=== PATIENT | male | born 2000 | race Caucasian/White ===

== ENCOUNTER 2019-09-09 12:50 | Observation (INO) ==
[2019-09-09] MEDS ORDERED: SODIUM CHLORIDE 0.9% 1000ML 2,000 ML IV SCH (13:30)
[2019-09-09] MEDS ORDERED: KETOROLAC TROMETHAMINE 15 MG/ML VIAL IV ONE (13:45)
[2019-09-09] MEDS ORDERED: ONDANSETRON INJ 2 MG/ML 2 ML VIAL IV STA (13:45)
[2019-09-09 13:56] LABS: Hematocrit (blood only) 39.3 % (42-52); Hemoglobin 13.7 g/dL (14.0-18.0); Mean Corpuscular Hemoglobin 29.1 pg (25-34); Mean Corpuscular Hgb Conc 34.9 g/dL (32-36); Mean Corpuscular Volume 83.6 fL (80-100); Mean Platelet Volume 9.8 fL (7.4-10.4); Platelet Count 185 K/uL (130-400); RDW Coefficient of Variation 12.4 % (11.5-14.5); RDW Standard Deviation 37.9 fL (36.4-46.3); White Blood Count 3.17 K/uL (4.8-10.8)
[2019-09-09 14:10] LABS: Alanine Aminotransferase 40 U/L (12-78); Albumin Level 3.6 gm/dl (3.4-5.0); Aspartate Aminotransferase 13 U/L (15-37); Blood Urea Nitrogen 10 mg/dl (7-18); Calcium 9.8 mg/dl (8.5-10.1); Carbon Dioxide 26 mmol/L (21-32); Chloride 99 mmol/L (98-107); Creatinine Clr Calc Pharmacy 105.8 ml/min; Est GFR (African American) 105.6; Est GFR (Non-African American) 91.1; Glucose 128 mg/dl (70-99); Potassium 3.5 mmol/L (3.5-5.1); Sodium 133 mmol/L (136-145)
[2019-09-09] MEDS ORDERED: ACETAMINOPHEN 500 MG TAB PO STA (14:10)
[2019-09-09 14:14] LABS: Albumin Globulin Ratio 0.9 (0.9-2); Alkaline Phosphatase 74 U/L (45-117); Bilirubin,Total 1.2 mg/dl (0.2-1); Globulin 4.2 gm/dl (2.5-4.0); Total Protein 7.8 gm/dl (6.4-8.2); Troponin I < 0.015 ng/ml (0-0.045)
[2019-09-09 14:23] LABS: Basophils # (auto) 0.01 K/uL (0-0.2); Basophils % (auto) 0.3 %; Dohle Bodies 2+; Lymphocytes # (auto) 0.82 K/uL (1.2-3.4); Lymphocytes % (auto) 25.9 %; Monocytes # (auto) 2.05 K/uL (0.11-0.59); Monocytes % (auto) 64.7 %; Neutrophils # (auto) 0.29 K/uL (1.4-6.5); Neutrophils % (auto) 9.1 %; Toxic Vacuolation 1+
--- NOTE | 2019-09-09 14:41 | XRay Report ---
XR chest 1V portable CLINICAL HISTORY: Fever and cough. COMPARISON STUDY: No previous studies for comparison. FINDINGS: Patient is mildly rotated. Lung volumes are normal. There is no pneumothorax or pleural eff usion. Possible left perihilar opacity is probably artifactual. Cardiac size is normal. Mediastinal c ontours are unremarkable. There is no evidence for pulmonary edema. IMPRESSION: Possible mild left perihilar opacity. Artifact is favored however a small focus of pneum onia could appear similar. Radiographic follow-up is recommended. Electronically signed by: Grady Zamorano M.D. 09/09/2019 2:39 PM
[2019-09-09] MEDS ORDERED: DOXYCYCLINE HYCLATE 100 MG in DEXTROSE 5% 100 ML IV STA (15:15)
[2019-09-09] MEDS ORDERED: cefTRIAXone SODIUM 1,000 MG/50 ML BAG IV STA (15:15)
[2019-09-09 15:49] LABS: Influenza A virus by PCR Neg for Influ A (Neg); Influenza B virus by PCR Neg for Influ B (Neg)
[2019-09-09 15:50] LABS: Appearance Urine Clear (Clear); Bilirubin Urine Negative (Negative); Blood Urine Trace (Negative); Color Urine Yellow; Glucose Urine UA Negative (Negative); Ketones Urine Negative (Negative); Leukocyte Esterase Urine Negative (Negative); Nitrite Urine Negative (Negative); Protein Urine 2+ (Negative); Specific Gravity Urine 1.025 (1.000-1.030); Urobilinogen Urine Negative (Negative)
[2019-09-09 15:56] LABS: Bacteria Urine Negative (Negative); Epithelial Cell Urine 20-30 /lpf (0-5); RBC Urine 0-4 /hpf (0-4); WBC Urine 0-5 /hpf (0-5)
[2019-09-09] MEDS: SODIUM CHLORIDE 0.9% 1000ML 1,000 ML IV SCH (16:30)
--- NOTE | 2019-09-09 17:47 | Emergency Department Note ---
Entered by Jose Alberto Sagastume acting as a scribe for Vaughn Gonzalez MD ED Provider Note CHIEF COMPLAINT: Fever HISTORY OF PRESENT ILLNESS: The patient is a 19 year old male who presents to the Emergency Room with complaints of a constant fever that started about 3 days ago. The patient reports that he was diagnosed with mono last month at [facility] and has been improving up until 3 days ago. With the fever, the patient has had a sore throat that is worse with swallowing. He adds that when swallows something he experiences a burning pain down his throat into his chest. The patient also endorses some intermittent abdominal pain with associated nausea and vomiting. The patient reports that she called a doctor at [facility] yesterday and had prednisone called in for him. The patient has only taken one dose of the steroids. The patient was seen at [facility] today and tested negative for the flu and strep. Pt denies LOC, diaphoresis, visual changes, back pain, melena, hematochezia, urinary symptoms, numbness, weakness, lymphadenopathy, rash, or other complaints. REVIEW OF SYSTEMS: See HPI for pertinent positives and negatives. A total of ten systems were reviewed and were otherwise negative. PMHx/PSHx: Pneumonia SOCIAL HISTORY: Patient lives at home. PHYSICAL EXAM: GENERAL: Awake, alert, uncomfortable-appearing, in no distress HENT: Normocephalic, atraumatic. Oropharynx unremarkable. Uvula is midline. EYES: Normal conjunctiva. Sclera non-icteric. NECK: Moderate anterior adenopathy. Supple. No nuchal rigidity. FROM. No masses. RESPIRATORY: Clear to auscultation. No wheezes. No rales. Normal respiratory effort. CARDIAC: Tachycardic rate. Normal rhythm. No murmurs. No rubs. Extremities warm and well perfused. Pulses equal. No JVD. GI: Soft, non-distended. No tenderness to palpation. No rebound or guarding. No masses. RECTAL: Deferred. MUSCULOSKELETAL: Atraumatic. Chest examination reveals no tenderness. The back is symmetrical on inspection without obvious abnormality. There is no CVA tenderness to palpation. No joint edema. LOWER EXTREMITIES: Calves are equal size bilaterally and non-tender. No edema. No discoloration. NEURO: Normal sensorium. No sensory or motor deficits noted. SKIN: No rash or jaundice noted. EMERGENCY DEPARTMENT COURSE: 1340: Past medical records reviewed. The patient was evaluated in room B09, and a complete history and physical examination were performed. 1433: I checked on the patient and his vitals are improving. 1520: I reevaluated the patient and updated him on results. We also discussed the treatment plan and he is agreeable. 1524: I spoke to Dr. Garcia - [facility] Hospitalist about the patient's case. He agreed to accept the patient for further evaluation. MEDICAL DECISION MAKING: B9 Triage Nursing notes reviewed and agree them. The patient's history was concerning for fever. Differential diagnosis: Etiologies such as otitis, pharyngitis, pneumonia, influenza, meningitis, urinary tract infection, sepsis, bacteremia, viral syndrome, as well as others were entertained. Physical examination: As above. The patient was tachycardic. No meningeal findings. He had moderate adenopathy without any uvular deviation. No stridor or airway compromise. ER treatment provided: Normal saline hydration with 2 L IV Toradol IV Zofran Oral Tylenol On reassessment the patient did feel better. Vital signs improving. IV Rocephin IV doxycycline Neutropenic precautions on reassessment the patient felt better. Diagnostics interpreted by me: ECG: Sinus tachycardia noted. The labs revealed the patient had a leukopenia as well as neutropenia on his CBC. No thrombocytopenia. Chemistry panel was unremarkable. Flu PCR testing was negative. Troponin negative. Imaging studies: Chest x-ray was concerning for developing infiltrate on the left side. The patient does have a significant cough and fever. This is was worrisome for pneumonia I discussed further management in the hospital with the patient. He was in agreement. Consultation: A consultation was placed with [facility] hospitalist. The case was discussed and diagnostics were reviewed. The patient was evaluated in the ER for further treatment. IMPRESSION: Febrile illness Neutropenia Left sided pneumonia PLAN: Being evaluated by the hospitalist The scribe's documentation has been prepared under my direction and personally reviewed by me in its entirety. I confirm that the note above accurately reflects all work, treatment, procedures, and medical decision making performed by me. Impression & Plan Febrile illness, Neutropenia, Pneumonia Past Med/Surg History Medical History Pneumonia Family History Other No pertinent family history in first degree relatives Social History Preferred Language: Italian Communication Ability: Effective Employment Advisor Required: No Beliefs That Will Affect Care: None Current Living Situation: Other Current Living Situation Comment: lives with roommates at [employer] Other Information That Helps Us Care for You: No Feels Safe at Home: Yes Safety Concerns: Feels Safe At This Time Smoking Status: Never smoker Do You Dip or Chew Tobacco: No ; Second Hand Exposure: No ; Tobacco Cessation Education Requested by Patient: No Hx Alcohol Use: Yes Hx Substance Use: No Results & Data Vital Signs Vital Signs - 24 hr 09/09/19 12:53 09/09/19 13:54 09/09/19 14:00 Temperature 39.5 C H Temperature Source Oral Pulse Rate 145 H 128 H 127 H Pulse Rate [Apical] Pulse Rate from SpO2 Sensor Respiratory Rate 16 31 H 31 H Respiratory Effort / Characteristics Non-Labored Spontaneous Respiratory Depth Normal Blood Pressure 118/70 115/54 L 109/51 L Blood Pressure [Left Arm] Blood Pressure Mean 86 73 64 Blood Pressure Mean [Left Arm] Blood Pressure Position Sitting Pulse Oximetry 98 Oxygen Delivery Method Room Air Sepsis Recent Fever Within 48 Hours Yes Sepsis New/Unexplained Change in Mental Status No Sepsis Action Taken by Nursing No Action Required 09/09/19 14:30 09/09/19 15:00 09/09/19 16:00 Temperature 38.8 C H Temperature Source Oral Pulse Rate 122 H 104 H Pulse Rate [Apical] 115 H Pulse Rate from SpO2 Sensor 110 H Respiratory Rate 30 H 20 26 H Respiratory Effort / Characteristics Respiratory Depth Normal Blood Pressure 91/39 L 100/47 L Blood Pressure [Left Arm] 103/49 L Blood Pressure Mean 63 71 Blood Pressure Mean [Left Arm] 67 Blood Pressure Position Pulse Oximetry 99 98 Oxygen Delivery Method Room Air Sepsis Recent Fever Within 48 Hours Sepsis New/Unexplained Change in Mental Status Sepsis Action Taken by [place]way Medications Current Medication List: was personally reviewed by me Laboratory Data Attestation: I reviewed the patient's lab results. Result diagrams: 09/09/19 13:32 09/09/19 13:32 Lab Results 09/09/19 09/09/19 09/09/19 Range/Units 13:32 13:32 14:50 WBC 3.17 L (4.8-10.8) K/uL RBC 4.70 (4.7-6.1) M/uL Hgb 13.7 L (14.0-18.0) g/dL Hct 39.3 L (42-52) % MCV 83.6 (80-100) fL MCH 29.1 (25-34) pg MCHC 34.9 (32-36) g/dL RDW Std Deviation 37.9 (36.4-46.3) fL RDW Coeff of Isabella 12.4 (11.5-14.5) % Plt Count 185 (130-400) K/uL MPV 9.8 (7.4-10.4) fL Immature Gran % (Auto) 0.0 % Neut % (Auto) 9.1 % Lymph % (Auto) 25.9 % [place] % (Auto) 64.7 % Eos % (Auto) 0.0 % Baso % (Auto) 0.3 % Immature Gran # (Auto) 0.00 (0.00-0.02) K/uL Neut # (Auto) 0.29 L* (1.4-6.5) K/uL Lymph # (Auto) 0.82 L (1.2-3.4) K/uL [place] # (Auto) 2.05 H (0.11-0.59) K/uL Eos # (Auto) 0.00 (0-0.5) K/uL Baso # (Auto) 0.01 (0-0.2) K/uL Toxic Vacuolation 1+ Dohle Bodies 2+ Sodium 133 L (136-145) mmol/L Potassium 3.5 (3.5-5.1) mmol/L Chloride 99 (98-107) mmol/L Carbon Dioxide 26 (21-32) mmol/L Anion Gap 7.0 (3-11) BUN 10 (7-18) mg/dl Creatinine 1.15 (0.6-1.4) mg/dl Est Cr Clr Drug Dosing 105.8 ml/min Est GFR ( Amer) 105.6 Est GFR (Non-Af Amer) 91.1 BUN/Creatinine Ratio 9.0 L (10-20) Glucose 128 H (70-99) mg/dl Lactate 1.3 (0.4-2.0) mmol/L Calcium 9.8 (8.5-10.1) mg/dl Total Bilirubin 1.2 H (0.2-1) mg/dl AST 13 L (15-37) U/L ALT 40 (12-78) U/L Alkaline Phosphatase 74 (45-117) U/L Troponin I < 0.015 (0-0.045) ng/ml Total Protein 7.8 (6.4-8.2) gm/dl Albumin 3.6 (3.4-5.0) gm/dl Globulin 4.2 H (2.5-4.0) gm/dl Albumin/Globulin Ratio 0.9 (0.9-2) Urine Color Urine Appearance (Clear) Urine pH (4.5-7.5) Ur Specific [place] (1.000-1.030) Urine Protein (Negative) Urine Glucose (UA) (Negative) Urine Ketones (Negative) Urine Blood (Negative) Urine Nitrite (Negative) Urine Bilirubin (Negative) Urine Urobilinogen (Negative) Ur Leukocyte Esterase (Negative) Urine RBC (0-4) /hpf Urine WBC (0-5) /hpf Ur Epithelial Cells (0-5) /lpf Urine Bacteria (Negative) Hyaline Casts (0-5) /lpf Influenza Type A (PCR) (Neg) Influenza Type B (PCR) (Neg) 09/09/19 09/09/19 Range/Units 15:00 15:31 WBC (4.8-10.8) K/uL RBC (4.7-6.1) M/uL Hgb (14.0-18.0) g/dL Hct (42-52) % MCV (80-100) fL MCH (25-34) pg MCHC (32-36) g/dL RDW Std Deviation (36.4-46.3) fL RDW Coeff of Isabella (11.5-14.5) % Plt Count (130-400) K/uL MPV (7.4-10.4) fL Immature Gran % (Auto) % Neut % (Auto) % Lymph % (Auto) % [place] % (Auto) % Eos % (Auto) % Baso % (Auto) % Immature Gran # (Auto) (0.00-0.02) K/uL Neut # (Auto) (1.4-6.5) K/uL Lymph # (Auto) (1.2-3.4) K/uL [place] # (Auto) (0.11-0.59) K/uL Eos # (Auto) (0-0.5) K/uL Baso # (Auto) (0-0.2) K/uL Toxic Vacuolation Dohle Bodies Sodium (136-145) mmol/L Potassium (3.5-5.1) mmol/L Chloride (98-107) mmol/L Carbon Dioxide (21-32) mmol/L Anion Gap (3-11) BUN (7-18) mg/dl Creatinine (0.6-1.4) mg/dl Est Cr Clr Drug Dosing ml/min Est GFR ( Amer) Est GFR (Non-Af Amer) BUN/Creatinine Ratio (10-20) Glucose (70-99) mg/dl Lactate (0.4-2.0) mmol/L Calcium (8.5-10.1) mg/dl Total Bilirubin (0.2-1) mg/dl AST (15-37) U/L ALT (12-78) U/L Alkaline Phosphatase (45-117) U/L Troponin I (0-0.045) ng/ml Total Protein (6.4-8.2) gm/dl Albumin (3.4-5.0) gm/dl Globulin (2.5-4.0) gm/dl Albumin/Globulin Ratio (0.9-2) Urine Color Yellow Urine Appearance Clear (Clear) Urine pH 6.0 (4.5-7.5) Ur Specific [place] 1.025 (1.000-1.030) Urine Protein 2+ H (Negative) Urine Glucose (UA) Negative (Negative) Urine Ketones Negative (Negative) Urine Blood Trace H (Negative) Urine Nitrite Negative (Negative) Urine Bilirubin Negative (Negative) Urine Urobilinogen Negative (Negative) Ur Leukocyte Esterase Negative (Negative) Urine RBC 0-4 (0-4) /hpf Urine WBC 0-5 (0-5) /hpf Ur Epithelial Cells 20-30 H (0-5) /lpf Urine Bacteria Negative (Negative) Hyaline Casts 10-30 H (0-5) /lpf Influenza Type A (PCR) Neg for Influ A (Neg) Influenza Type B (PCR) Neg for Influ B (Neg) Administered Medications Discontinued Medications Acetaminophen (Tylenol) 1,000 mg PO NOW STA Stop: 09/09/19 14:11 Last Admin: 09/09/19 14:48 Dose: 1,000 mg Documented by: [id number] Sodium Chloride (Nss 1000ml) 2,000 mls @ 999 mls/hr IV .Q2H1M GLORAI Stop: 09/09/19 15:30 Last Infusion: 09/09/19 14:48 Dose: 0 mls/hr Documented by: [id number] Admin: 09/09/19 13:45 Dose: 999 mls/hr Documented by: [id number] Ceftriaxone Sodium (Rocephin) 1,000 mg in 50 mls @ 100 mls/hr IV NOW STA Stop: 09/09/19 15:44 Last Infusion: 09/09/19 16:19 Dose: 0 mls/hr Documented by: [id number] Admin: 09/09/19 15:48 Dose: 100 mls/hr Documented by: [id number] Doxycycline Hyclate 100 mg/ (Dextrose) 110 mls @ 50 mls/hr IV NOW STA Stop: 09/09/19 17:26 Last Admin: 09/09/19 16:20 Dose: 50 mls/hr Documented by: [id number] Ketorolac Tromethamine (Toradol) 10 mg IV NOW ONE Stop: 09/09/19 13:46 Last Admin: 09/09/19 13:51 Dose: 10 mg Documented by: [id number] Ondansetron HCl (Zofran) 4 mg IV NOW STA Stop: 09/09/19 13:46 Last Admin: 09/09/19 13:51 Dose: 4 mg Documented by: [id number] Imaging Data Radiologist's Impression: Radiology results as stated below per my review and the radiologist's interpretation: XR chest 1V portable CLINICAL HISTORY: Fever and cough. COMPARISON STUDY: No previous studies for comparison. FINDINGS: Patient is mildly rotated. Lung volumes are normal. There is no pneumothorax or pleural effusion. Possible left perihilar opacity is probably artifactual. Cardiac size is normal. Mediastinal contours are unremarkable. There is no evidence for pulmonary edema. IMPRESSION: Possible mild left perihilar opacity. Artifact is favored however a small focus of pneumonia could appear similar. Radiographic follow-up is recommended. Electronically signed by: Grady Zamorano M.D. 09/09/2019 2:39 PM ECG Data Attestation: I personally reviewed and interpreted this ECG as follows: Indication: + tachycardia Rate (beats per minute): 124 Rhythm: sinus tachycardia ECG Intervals/blocks: + Normal QRS ECG [place]: + Normal ECG ST segments: + Nonspecific ST abnormalities; no ST depression and no ST elevation Blood Pressure Blood Pressure Findings: Low blood pressure Blood Pressure Disposition: further management by hospitalist Discharge Plan Visit Data Chief Complaint: Dehydration Stated Complaint: DEHYDRATION - FEVER - TACHYCARDIA ED Provider: Vaughn Gonzalez Discharge Problem: Febrile illness, Neutropenia, Pneumonia Patient Disposition: Being Evaluated by Hospitalist Forms Stand Alone Forms: [employer] Prescriptions Prescriptions: No Action No Known Home Medications RF: 0 Referrals [facility]errals: [facility] [Primary Care Provider] - Discharge Problem: Neutropenia Qualifiers: Neutropenia type: unspecified Qualified Code(s): D70.9 - Neutropenia, unspecified Pneumonia Qualifiers: Pneumonia type: due to unspecified organism Laterality: left Lung location: upper lobe of lung Qualified Code(s): J18.9 - Pneumonia, unspecified organism The scribe's documentation has been prepared under my direction and personally reviewed by me in its entirety. I confirm that the note above accurately reflects all work, treatment, procedures, and medical decision making performed by me.
--- NOTE | 2019-09-09 18:06 | History & Physical Report ---
Date of Service September 09, 2019 Assessment & Plan (1) Pneumonia: Obs GMF IV Rocephin IV Doxycycline I ordered a CT chest ti further evaluate for extent of pneumonia. (2) Febrile illness: Flu PCR is negative I will send for Anaplasmosis and Lyme titre for completeness. Antipyretics. IVF NSS 125ml/hr. (3) Neutropenia: Suspect this is due to acute illness will trend CBC History of Present Illness 19 y/o male presented to the ED from [facility] with a 3 day history of fever, headache, sore throat, N/V. He was noted to have sinus tachycardia at [facility] into the 130's. He was diagnosed with mono 1 month prior and was getting better. The present symptom constellation came on suddenly 3 days prior. Testing today at [facility] showed negative for flu and strep. The patient had dose of Toradol in the ED which improved his sore throat and headache. He has a cough which is non- productive. No chest pain, SOB or rash. Primary Care Provider: [facility] Allergies Allergy/AdvReac Type Severity Reaction Status Date / Time No Known Allergies Allergy Unverified 09/09/19 13:08 Home Medications Home Medications Medication Instructions Recorded Confirmed Type No Known Home Medications 09/09/19 09/09/19 History Past Med/Surg History Medical History Pneumonia Family History Other No pertinent family history in first degree relatives Social History Preferred Language: Arabic Communication Ability: Effective Manager Medicare Required: No Beliefs That Will Affect Care: None Current Living Situation: Other Current Living Situation Comment: lives with roommates at [facility] [place] Other Information That Helps Us Care for You: No Feels Safe at Home: Yes Safety Concerns: Feels Safe At This Time Smoking Status: Never smoker Do You Dip or Chew Tobacco: No ; Second Hand Exposure: No ; Tobacco Cessation Education Requested by Patient: No Hx Alcohol Use: Yes Hx Substance Use: No Review of Systems Review of Systems: Constitutional- no weight loss Eyes- no acute visual changes ENT- no sinus drainage; As in HPI Pulmonary- As in HPI Cardiac- no chest pain, no palpitations, no orthopnea, no dependent edema GI- no diarrhea, no melena, no hematochezia - no dysuria, no hematuria Musculoskeletal- no arthralgias, mild myalgias Derm- no rashes, no new skin lesions. Hematologic- no unusual bruising, no unusual bleeding Lymphatics- no adenopathy Endocrine- no polyuria or polydipsia; no heat or cold intolerance Neuro- no focal neurologic symptoms Psych- no anxiety, no depression Physical Exam Physical Exam: General- adult male, NAD Head- atraumatic Eyes- PERRL, EOMI, anicteric ENT- oropharynx clear Neck- supple, no JVD, + anterior chain adenopathy with tenderness, no thyromegaly. Lungs- + Scattered rhonchi, otherwise CTA Heart- regular rhythm; no murmur, no gallop, no rub appreciated Abdomen- normal bowel sounds, soft, nontender. Extremities- no pretibial edema, no calf tenderness; peripheral pulses intact Neuro- alert, oriented x 3; PERRL, EOMI; refrigerator repairman II-XII grossly intact, non-focal. Skin- warm & dry without rash. Results & Data Vital Signs (Past 12 Hours) Vital Signs Temp Pulse Pulse Resp BP BP Pulse Ox 09/09/19 17:45 37.1 C 18 130/65 99 09/09/19 16:00 104 H 26 H 100/47 L 98 09/09/19 15:00 38.8 C H 115 H 20 103/49 L 99 09/09/19 14:30 122 H 30 H 91/39 L 09/09/19 14:00 127 H 31 H 109/51 L 09/09/19 13:54 128 H 31 H 115/54 L 09/09/19 12:53 39.5 C H 145 H 16 118/70 98 Laboratory Results Laboratory Results WBC 3.17 K/uL (4.8-10.8) L 09/09/19 13:32 RBC 4.70 M/uL (4.7-6.1) 09/09/19 13:32 Hgb 13.7 g/dL (14.0-18.0) L 09/09/19 13:32 Hct 39.3 % (42-52) L 09/09/19 13:32 MCV 83.6 fL (80-100) 09/09/19 13:32 MCH 29.1 pg (25-34) 09/09/19 13:32 MCHC 34.9 g/dL (32-36) 09/09/19 13:32 RDW Std Deviation 37.9 fL (36.4-46.3) 09/09/19 13:32 RDW Coeff of Isabella 12.4 % (11.5-14.5) 09/09/19 13:32 Plt Count 185 K/uL (130-400) 09/09/19 13:32 MPV 9.8 fL (7.4-10.4) 09/09/19 13:32 Immature Gran % (Auto) 0.0 % 09/09/19 13:32 Neut % (Auto) 9.1 % 09/09/19 13:32 Lymph % (Auto) 25.9 % 09/09/19 13:32 [place] % (Auto) 64.7 % 09/09/19 13:32 Eos % (Auto) 0.0 % 09/09/19 13:32 Baso % (Auto) 0.3 % 09/09/19 13:32 Immature Gran # (Auto) 0.00 K/uL (0.00-0.02) 09/09/19 13:32 Neut # (Auto) 0.29 K/uL (1.4-6.5) L* 09/09/19 13:32 Lymph # (Auto) 0.82 K/uL (1.2-3.4) L 09/09/19 13:32 [place] # (Auto) 2.05 K/uL (0.11-0.59) H 09/09/19 13:32 Eos # (Auto) 0.00 K/uL (0-0.5) 09/09/19 13:32 Baso # (Auto) 0.01 K/uL (0-0.2) 09/09/19 13:32 Toxic Vacuolation 1+ 09/09/19 13:32 Dohle Bodies 2+ 09/09/19 13:32 Sodium 133 mmol/L (136-145) L 09/09/19 13:32 Potassium 3.5 mmol/L (3.5-5.1) 09/09/19 13:32 Chloride 99 mmol/L (98-107) 09/09/19 13:32 Carbon Dioxide 26 mmol/L (21-32) 09/09/19 13:32 Anion Gap 7.0 (3-11) 09/09/19 13:32 BUN 10 mg/dl (7-18) 09/09/19 13:32 Creatinine 1.15 mg/dl (0.6-1.4) 09/09/19 13:32 Est Cr Clr Drug Dosing 105.8 ml/min 09/09/19 13:32 Est GFR ( Amer) 105.6 09/09/19 13:32 Est GFR (Non-Af Amer) 91.1 09/09/19 13:32 BUN/Creatinine Ratio 9.0 (10-20) L 09/09/19 13:32 Glucose 128 mg/dl (70-99) H 09/09/19 13:32 Lactate 1.3 mmol/L (0.4-2.0) 09/09/19 14:50 Calcium 9.8 mg/dl (8.5-10.1) 09/09/19 13:32 Total Bilirubin 1.2 mg/dl (0.2-1) H 09/09/19 13:32 AST 13 U/L (15-37) L 09/09/19 13:32 ALT 40 U/L (12-78) 09/09/19 13:32 Alkaline Phosphatase 74 U/L (45-117) 09/09/19 13:32 Troponin I < 0.015 ng/ml (0-0.045) 09/09/19 13:32 Total Protein 7.8 gm/dl (6.4-8.2) 09/09/19 13:32 Albumin 3.6 gm/dl (3.4-5.0) 09/09/19 13:32 Globulin 4.2 gm/dl (2.5-4.0) H 09/09/19 13:32 Albumin/Globulin Ratio 0.9 (0.9-2) 09/09/19 13:32 Urine Color Yellow 09/09/19 15:31 Urine Appearance Clear (Clear) 09/09/19 15:31 Urine pH 6.0 (4.5-7.5) 09/09/19 15:31 Ur Specific [place] 1.025 (1.000-1.030) 09/09/19 15:31 Urine Protein 2+ (Negative) H 09/09/19 15:31 Urine Glucose (UA) Negative (Negative) 09/09/19 15:31 Urine Ketones Negative (Negative) 09/09/19 15:31 Urine Blood Trace (Negative) H 09/09/19 15:31 Urine Nitrite Negative (Negative) 09/09/19 15:31 Urine Bilirubin Negative (Negative) 09/09/19 15:31 Urine Urobilinogen Negative (Negative) 09/09/19 15:31 Ur Leukocyte Esterase Negative (Negative) 09/09/19 15:31 Urine RBC 0-4 /hpf (0-4) 09/09/19 15:31 Urine WBC 0-5 /hpf (0-5) 09/09/19 15:31 Ur Epithelial Cells 20-30 /lpf (0-5) H 09/09/19 15:31 Urine Bacteria Negative (Negative) 09/09/19 15:31 Hyaline Casts 10-30 /lpf (0-5) H 09/09/19 15:31 Influenza Type A (PCR) Neg for Influ A (Neg) 09/09/19 15:00 Influenza Type B (PCR) Neg for Influ B (Neg) 09/09/19 15:00 Diagnostic Findings [place], [place] [phone] XRay Report Patient: JULIO SANCHEZAdmit Date: 09/09/19 MR#: [id number]: [id number] Acct ID:[id number]: Date: 2000[facility] Zip: [place] [address] Age: 19Location: ED Sex: M Room/Bed: Att Phy:Diagnosis: DEHYDRATION - FEVER - TACHYCARDIA [facility] Services[facility]: [facility] Fam Phy:Interpreting Phy: Grady Zamorano MD Admit Phy: Ordering Phy: Vaughn Gonzalez MD cc: ~ XR chest 1V portable CLINICAL HISTORY: Fever and cough. COMPARISON STUDY: No previous studies for comparison. FINDINGS: Patient is mildly rotated. Lung volumes are normal. There is no pneumothorax or pleural effusion. Possible left perihilar opacity is probably artifactual. Cardiac size is normal. Mediastinal contours are unremarkable. There is no evidence for pulmonary edema. IMPRESSION: Possible mild left perihilar opacity. Artifact is favored however a small focus of pneumonia could appear similar. Radiographic follow-up is recommended. Electronically signed by: Grady Zamorano M.D. 09/09/2019 2:39 PM Dictated: 09/09/19 1438 Transcribed: 09/09/19 1438 Code Status & VTE Plan VTE Prophylaxis Plan VTE Prophylaxis will be ordered: Yes PG Care Time/CCT Total # of Minutes Spent Total Time Spent: 50 Total Time Spent with Patient: Total time spent is greater than 50% in coordination of care (as documented) at patient's floor/unit and/or counseling patient: (1) Pneumonia Laterality: left Lung location: upper lobe of lung Pneumonia type: due to unspecified organism Qualified Code(s): J18.9 - Pneumonia, unspecified organism (2) Neutropenia Neutropenia type: unspecified Qualified Code(s): D70.9 - Neutropenia, unspecified
[2019-09-09] MEDS ORDERED: ACETAMINOPHEN 325 MG TAB PO PRN (19:06)
[2019-09-09] MEDS ORDERED: ALBUTEROL 0.083% NEBU SOLN 3 ML VIAL NEB PRN (19:06)
--- NOTE | 2019-09-09 19:42 | CT Scan Report ---
CT OF THE CHEST WITHOUT IV CONTRAST CLINICAL HISTORY: Cough. Possible pneumonia. COMPARISON STUDY: Chest radiograph performed earlier today. CT DOSE: 301.50 mGy.cm TECHNIQUE: Axial images of the chest were obtained without IV contrast. Images were reviewed in the axial, sagittal, and coronal planes. IV contrast was not administered for this examination. Automat ed exposure control was utilized for the study. A dose lowering technique was utilized adhering to t he principles of ALARA. FINDINGS: The size of the heart is normal. There is no pericardial effusion. No enlarged axillary, m ediastinal or hilar lymph nodes are present. The central airways are patent. The lungs are clear. The possible left lung airspace opacity on prior chest radiograph was artifactual. No pneumothorax or pl eural effusion is noted. Bony thorax is unremarkable. Mild to moderate splenomegaly is partially imag ed on this examination. The liver may also be enlarged. IMPRESSION: 1. Lungs clear. Possible left lung airspace opacity on prior chest radiograph was artifactual. No acu te intrathoracic findings on unenhanced exam. 2. Mild to moderate splenomegaly and possible hepatomegaly, partially imaged on this exam. Electronically signed by: Grady Zamorano M.D. 09/09/2019 7:41 PM
[2019-09-09 20:05] LABS: Lyme Ab IgG w/WB Rflx Negative (Negative); Lyme Ab IgM w/WB Rflx Negative (Negative)
[2019-09-09] MEDS: KETOROLAC TROMETHAMINE 15 MG/ML VIAL IV PRN (20:25)
[2019-09-09] MEDS: ENOXAPARIN INJ 40 MG/0.4 ML SYR SQ SCH (20:44)
[2019-09-09] MEDS: ONDANSETRON INJ 2 MG/ML 2 ML VIAL IV PRN (20:44)
[2019-09-10] MEDS: SODIUM CHLORIDE 0.9% 1000ML 1,000 ML IV SCH ×2 (03:38→11:26)
[2019-09-10] MEDS ORDERED: DOXYCYCLINE HYCLATE 100 MG in DEXTROSE 5% 100 ML IV SCH (06:00)
[2019-09-10] MEDS ORDERED: SODIUM CHLORIDE 0.65% NA SOLN 45 ML (OCEAN) ONE (06:43)
[2019-09-10] MEDS: GUAIFENESIN/CODEINE 200MG/20MG 10ML UDC PO PRN ×2 (06:46→16:03)
[2019-09-10] MEDS: KETOROLAC TROMETHAMINE 15 MG/ML VIAL IV PRN ×2 (06:48→23:01)
[2019-09-10 08:19] LABS: Hemoglobin 11.6 g/dL (14.0-18.0); Mean Corpuscular Hgb Conc 34.1 g/dL (32-36); Mean Platelet Volume 9.4 fL (7.4-10.4); Platelet Count 148 K/uL (130-400); RDW Coefficient of Variation 12.6 % (11.5-14.5); RDW Standard Deviation 39.2 fL (36.4-46.3); White Blood Count 3.86 K/uL (4.8-10.8)
[2019-09-10] MEDS: ACETAMINOPHEN 500 MG TAB PO SCH ×3 (08:32→23:01)
[2019-09-10] MEDS: ONDANSETRON INJ 2 MG/ML 2 ML VIAL IV PRN (08:34)
[2019-09-10 08:43] LABS: Basophils # (auto) 0.01 K/uL (0-0.2); Basophils % (auto) 0.3 %; Eosinophils # (auto) 0.02 K/uL (0-0.5); Eosinophils % (auto) 0.5 %; Immature Granulocytes # (auto) 0.02 K/uL (0.00-0.02); Immature Granulocytes % (auto) 0.5 %; Lymphocytes # (auto) 1.48 K/uL (1.2-3.4); Lymphocytes % (auto) 38.3 %; Monocytes % (auto) 41.5 %; Neutrophils # (auto) 0.73 K/uL (1.4-6.5); Neutrophils % (auto) 18.9 %; Toxic Granulation 3+
[2019-09-10 08:51] LABS: Albumin Globulin Ratio 0.8 (0.9-2); Albumin Level 2.7 gm/dl (3.4-5.0); BUN Creatinine Ratio 10.5 (10-20); Bilirubin Direct 0.2 mg/dl (0-0.2); Bilirubin,Total 0.7 mg/dl (0.2-1); Calcium 8.7 mg/dl (8.5-10.1); Creatinine Clr Calc Pharmacy 152.1 ml/min; Est GFR (Non-African American) 128.6; Globulin 3.4 gm/dl (2.5-4.0); Potassium 3.7 mmol/L (3.5-5.1); Total Protein 6.1 gm/dl (6.4-8.2)
--- NOTE | 2019-09-10 10:38 | Discharge Summary ---
Date of Service September 10, 2019 Admission HPI Per Admitting Provider 19 y/o male presented to the ED from [facility] with a 3 day history of fever, headache, sore throat, N/V. He was noted to have sinus tachycardia at [facility] into the 130's. He was diagnosed with mono 1 month prior and was getting better. The present symptom constellation came on suddenly 3 days prior. Testing today at [facility] showed negative for flu and strep. The patient had dose of Toradol in the ED which improved his sore throat and headache. He has a cough which is non- productive. No chest pain, SOB or rash. Primary Care Provider: [facility] Principal Diagnosis Febrile Illness Discharge Exam Constitutional WD/WN, vitals as above cooperative and comfortable Eyes PERRL, conjunctivae normal, anicteric sclerae ENMT Nose: no external nose abnormality mild posterior pharanygeal erythema, no exudate; no enlarged tonsils, or signs of abscess Neck right anterior chain LAD, posterior cervical LAD Respiratory normal respiratory effort, lungs clear to auscultation Cardiovascular RRR, no murmur, no edema Gastrointestinal (Abdomen) Percussion/Palpation: abdomen soft; abdomen nontender Musculoskeletal Head/Neck/Chest: normocephalic and head atraumatic Skin no rashes, warm and dry Neurologic moves all extremities and awake Psychiatric A+Ox3, euthymic affect Discharge Data Allergies Allergy/AdvReac Type Severity Reaction Status Date / Time No Known Allergies Allergy Unverified 09/09/19 13:08 Ordered Studies 09/09/19 19:06 CT chest wo con Urgent IMPRESSION: 1. Lungs clear. Possible left lung airspace opacity on prior chest radiograph was artifactual. No acute intrathoracic findings on unenhanced exam. 2. Mild to moderate splenomegaly and possible hepatomegaly, partially imaged on this exam. Hospital Course (1) Febrile illness: Jaun Morelos is a 19 y/o male with a past medical history of environmental allergies, dx with EBV a last month, admitted for febrile illness, neutropenia, and questionable pneumonia on CXR that was ruled out with CT Chest which showed clear lungs, mild to moderate splenomegaly, and possible hepatomegaly. He had a Leukopenia and Neutropenia, was on Neutropenic pre- cautions here. He was started on Doxycycline and worked up for Anaplasmosis - with negative peripheral smear and pending lab values. He was negative for influenza, negative for strep throat. Doxycycline was stopped. He was started on Rocephin for questionable pneumonia which was ruled out on CT Chest and with negative Procalcitonin. Rocephin was stopped. He does not require antibiotics in outpatient setting. He was given 2L NSS Bolus in ED and treated with Toradol and Tylenol which he notes have helped his symptoms of sore throat, pain with swallowing, fever, and chills. He most likely acquired a new viral illness or had worsening of his EBV in setting of increased stress from his upcoming final exams. His splenomegaly and posterior LAD fit with EBV or less likely CMV. Or this is another URI virus causing similar symptoms. There is no signs of bacterial infection. He felt better here with supportive care and will continue supportive care at home. (2) Neutropenia: 09/09 initial value was 0.29; Repeat value was 09/10 0.73, trending up. Most likely sequestrated in LAD, Splenomegaly, no signs of abscess. He would benefit from lab recheck in one week to ensure that values continue to improve. He would benefit from HIV testing in the outpatient setting as well, although low risk. (3) Splenomegaly: Most likely from Viral illness No contact sports for 6 weeks. Total Time Total Time Spent Total Time Spent (In Minutes): 35 Total Time Includes: Examination of the Patient, Discharge Planning and Medication Reconciliation Discharge Plan Discharge Items Patient Disposition: Home - Self-Care Reason For Visit: FEVER,PNEUMONIA Discharge Diagnosis: Fever, Neutropenia Activity: Per Instructions section Non-emergency contact: Primary Care Provider Call non-emergency contact if: you have any medication questions and your symptoms worsen Follow-up/Referrals: [facility] [Primary Care Provider] - Diet: Regular Addtl Attending Provider Instructions: No contact sports for 6 weeks as you have an enlarged spleen; trauma to the area over your spleen on your left side could cause a fatal rupture. Your spleen is enlarged from fighting off viral infection. You do not have a pneumonia. This was confirmed on CT scan of your chest showing lungs are clear. We can use [id number] medications to treat your illness. You can take Tylenol 1,000 mg every 8 hours (pills come in 500mg, take 2). Pending Studies at Discharge: Yes Studies:: Anaplasmosis Stand-Alone Forms: My [facility] Medications and DC Order Prescriptions: No Action No Known Home Medications RF: 0 Admission Data Admit Date/Time: 09/09/19 15:54 Attending Provider: Gerson Leblanc Admit Provider: Lane Garcia Primary Care Provider: [facility] Other Providers: Lane Garcia Other Interventions: Discharge Summary Assessment (RN) Last Done: 09/10/19 11:02 Resident Activity Tracking Resident Involvement: Resident Care Provided Care Provided: Adult Hospital Medicine
--- NOTE | 2019-09-10 11:17 | Hospitalist Progress Note ---
Date of Service September 10, 2019 Assessment & Plan (1) Febrile illness: Jaun Morelos is a 19 y/o male with a past medical history of environmental allergies, dx with EBV a last month, admitted for febrile illness, neutropenia, and questionable pneumonia on CXR that was ruled out with CT Chest which showed clear lungs, mild to moderate splenomegaly, and possible hepatomegaly. He had a Leukopenia and Neutropenia, was on Neutropenic pre- cautions here. He was started on Doxycycline and worked up for Anaplasmosis - with negative peripheral smear and pending lab values. He was negative for influenza, negative for strep throat. Doxycycline was stopped. He was started on Rocephin for questionable pneumonia which was ruled out on CT Chest and with negative Procalcitonin. Rocephin was stopped. He does not require antibiotics in outpatient setting. He was given 2L NSS Bolus in ED and treated with Toradol and Tylenol which he notes have helped his symptoms of sore throat, pain with swallowing, fever, and chills. He most likely acquired a new viral illness or had worsening of his EBV in setting of increased stress from his upcoming final exams. His splenomegaly and posterior LAD fit with EBV or less likely CMV. Or this is another URI virus causing similar symptoms. There is no signs of bacterial infection. He felt better here with supportive care and will continue supportive care at home. - Discontinue antibiotics here and ordered scheduled Tylenol 1000mg q8h PO, continue with Toradol PRN, stopped IVFs, encourage PO intake. - Monitor for fevers will try to suppress with scheduled tylenol while also making patient more comfortable from avoiding fevers anticipate home discharge tomorrow. (2) Neutropenia: 09/09 initial value was 0.29; Repeat value was 09/10 0.73, trending up. Most likely sequestrated in LAD, Splenomegaly, no signs of abscess. He would benefit from lab recheck in one week to ensure that values continue to improve. He would benefit from HIV testing in the outpatient setting as well, although low risk. (3) Splenomegaly: Most likely from Viral illness No contact sports for 8 weeks. Supervising Physician Co-Signing Physician Notes I personally examined the patient and verified all little points of history and exam, discussed case, and agree with decision making with Dr Regalado. Feeling better, but still little bit worried about how he is doing and how he would do outside of the hospital. But he does note that overall he does feel much better. Still with a sore throat. Vitals noted, in general he is awake and alert no distress. His oropharynx is erythematous with especially right tonsillar exudate, although no significant distortion of landmarks. Of note his uvula is somewhat long and seems to curve forward but does not point one direction or another. He has no "hot potato" voice. He does have a degree of cervical adenopathy. Breathing unlabored no accessory muscle use good effort. Skin shows no rashes no pallor or icterus. Infectious illness/neutropeniamore than likely is a viral infection precipitating a secondary neutropenia, not a neutropenic illness precipitating opportunistic infection. no s/s malignancy/no atypia on CBC (could consider peripheral smear but low yield), as above noted, screening for HIV is reasonable, but I am not sure about the false positive rate whenever there is other concomitant inflammation, and given that there is no acuity to this it can be done as an outpatient (discussed this with patient), more than likely viral illness. Stop antibiotics. Follow symptoms and temperature on supportive care alone. f/u CBC in AM - hopefully home tomorrow. Subjective Jac notes his symptoms of sore throat, fever, chills, not feeling well have improved with treatment, but then started to come back again this AM prior to AM morning meds. He has not had shortness of breath, vomiting, diarrhea. He notes being able to tolerate PO intake. He states that he is fearing return of symptoms if returning home today and that after discussion with his parents, they and him would feel comfortable being observed in the hospital for another night, with tentative plan for discharge home tomorrow. Physical Exam Constitutional: WD/WN, vitals as above cooperative and comfortable Eyes: PERRL, conjunctivae normal, anicteric sclerae ENMT: Nose: no external nose abnormality Throat: + posterior oropharynx abnormality (Erythema and right tonsilar exudate ) Respiratory: normal respiratory effort, lungs clear to auscultation Cardiovascular: RRR, no murmur, no edema Gastrointestinal (Abdomen): Percussion/Palpation: abdomen soft; abdomen nontender Musculoskeletal: Head/Neck/Chest: normocephalic and head atraumatic Skin: no rashes, warm and dry Neurologic: moves all extremities and awake Psychiatric: A+Ox3, euthymic affect Results & Data Vital Signs (Past 12 Hours) Vital Signs Temp Pulse Resp BP Pulse Ox 09/10/19 11:02 36.8 C 100 H 20 130/70 95 09/10/19 09:40 36.8 C 09/10/19 07:14 37.8 C H 100 H 20 130/70 95 Laboratory Results Laboratory Results - last 24 hr 09/09/19 09/09/19 09/09/19 13:32 13:32 13:32 WBC 3.17 L RBC 4.70 Hgb 13.7 L Hct 39.3 L MCV 83.6 MCH 29.1 MCHC 34.9 RDW Std Deviation 37.9 RDW Coeff of Isabella 12.4 Plt Count 185 MPV 9.8 Immature Gran % (Auto) 0.0 Neut % (Auto) 9.1 Lymph % (Auto) 25.9 [place] % (Auto) 64.7 Eos % (Auto) 0.0 Baso % (Auto) 0.3 Immature Gran # (Auto) 0.00 Neut # (Auto) 0.29 L* Lymph # (Auto) 0.82 L [place] # (Auto) 2.05 H Eos # (Auto) 0.00 Baso # (Auto) 0.01 Toxic Granulation Toxic Vacuolation 1+ Dohle Bodies 2+ ESR Sodium 133 L Potassium 3.5 Chloride 99 Carbon Dioxide 26 Anion Gap 7.0 BUN 10 Creatinine 1.15 Est Cr Clr Drug Dosing 105.8 Est GFR ( Amer) 105.6 Est GFR (Non-Af Amer) 91.1 BUN/Creatinine Ratio 9.0 L Glucose 128 H Lactate Calcium 9.8 Total Bilirubin 1.2 H Direct Bilirubin AST 13 L ALT 40 Alkaline Phosphatase 74 Troponin I < 0.015 C-Reactive Protein Total Protein 7.8 Albumin 3.6 Globulin 4.2 H Albumin/Globulin Ratio 0.9 Procalcitonin Urine Color Urine Appearance Urine pH Ur Specific [place] Urine Protein Urine Glucose (UA) Urine Ketones Urine Blood Urine Nitrite Urine Bilirubin Urine Urobilinogen Ur Leukocyte Esterase Urine RBC Urine WBC Ur Epithelial Cells Urine Bacteria Hyaline Casts Anaplasma Smear See Comment A. phagocytophilum DNA Lyme Disease IgG Ab Lyme Disease IgM Ab Influenza Type A (PCR) Influenza Type B (PCR) 09/09/19 09/09/19 09/09/19 13:32 13:41 14:50 WBC RBC Hgb Hct MCV MCH MCHC RDW Std Deviation RDW Coeff of Isabella Plt Count MPV Immature Gran % (Auto) Neut % (Auto) Lymph % (Auto) [place] % (Auto) Eos % (Auto) Baso % (Auto) Immature Gran # (Auto) Neut # (Auto) Lymph # (Auto) [place] # (Auto) Eos # (Auto) Baso # (Auto) Toxic Granulation Toxic Vacuolation Dohle Bodies ESR Sodium Potassium Chloride Carbon Dioxide Anion Gap BUN Creatinine Est Cr Clr Drug Dosing Est GFR ( Amer) Est GFR (Non-Af Amer) BUN/Creatinine Ratio Glucose Lactate 1.3 Calcium Total Bilirubin Direct Bilirubin AST ALT Alkaline Phosphatase Troponin I C-Reactive Protein Total Protein Albumin Globulin Albumin/Globulin Ratio Procalcitonin Urine Color Urine Appearance Urine pH Ur Specific [place] Urine Protein Urine Glucose (UA) Urine Ketones Urine Blood Urine Nitrite Urine Bilirubin Urine Urobilinogen Ur Leukocyte Esterase Urine RBC Urine WBC Ur Epithelial Cells Urine Bacteria Hyaline Casts Anaplasma Smear A. phagocytophilum DNA Pending Lyme Disease IgG Ab Negative Lyme Disease IgM Ab Negative Influenza Type A (PCR) Influenza Type B (PCR) 09/09/19 09/09/19 09/10/19 15:00 15:31 07:54 WBC 3.86 L RBC 4.00 L Hgb 11.6 L Hct 34.0 L MCV 85.0 MCH 29.0 MCHC 34.1 RDW Std Deviation 39.2 RDW Coeff of Isabella 12.6 Plt Count 148 MPV 9.4 Immature Gran % (Auto) 0.5 Neut % (Auto) 18.9 Lymph % (Auto) 38.3 [place] % (Auto) 41.5 Eos % (Auto) 0.5 Baso % (Auto) 0.3 Immature Gran # (Auto) 0.02 Neut # (Auto) 0.73 L* Lymph # (Auto) 1.48 [place] # (Auto) 1.60 H Eos # (Auto) 0.02 Baso # (Auto) 0.01 Toxic Granulation 3+ Toxic Vacuolation Dohle Bodies ESR Sodium Potassium Chloride Carbon Dioxide Anion Gap BUN Creatinine Est Cr Clr Drug Dosing Est GFR ( Amer) Est GFR (Non-Af Amer) BUN/Creatinine Ratio Glucose Lactate Calcium Total Bilirubin Direct Bilirubin AST ALT Alkaline Phosphatase Troponin I C-Reactive Protein Total Protein Albumin Globulin Albumin/Globulin Ratio Procalcitonin Urine Color Yellow Urine Appearance Clear Urine pH 6.0 Ur Specific [place] 1.025 Urine Protein 2+ H Urine Glucose (UA) Negative Urine Ketones Negative Urine Blood Trace H Urine Nitrite Negative Urine Bilirubin Negative Urine Urobilinogen Negative Ur Leukocyte Esterase Negative Urine RBC 0-4 Urine WBC 0-5 Ur Epithelial Cells 20-30 H Urine Bacteria Negative Hyaline Casts 10-30 H Anaplasma Smear A. phagocytophilum DNA Lyme Disease IgG Ab Lyme Disease IgM Ab Influenza Type A (PCR) Neg for Influ A Influenza Type B (PCR) Neg for Influ B 09/10/19 09/10/19 09/10/19 07:54 07:54 07:54 WBC RBC Hgb Hct MCV MCH MCHC RDW Std Deviation RDW Coeff of Isabella Plt Count MPV Immature Gran % (Auto) Neut % (Auto) Lymph % (Auto) [place] % (Auto) Eos % (Auto) Baso % (Auto) Immature Gran # (Auto) Neut # (Auto) Lymph # (Auto) [place] # (Auto) Eos # (Auto) Baso # (Auto) Toxic Granulation Toxic Vacuolation Dohle Bodies ESR 37 H Sodium 137 Potassium 3.7 Chloride 107 Carbon Dioxide 25 Anion Gap 5.0 BUN 8 Creatinine 0.80 D Est Cr Clr Drug Dosing 152.1 Est GFR ( Amer) 149.0 Est GFR (Non-Af Amer) 128.6 BUN/Creatinine Ratio 10.5 Glucose 92 Lactate Calcium 8.7 Total Bilirubin 0.7 D Direct Bilirubin 0.2 AST 14 L ALT 30 Alkaline Phosphatase 61 Troponin I C-Reactive Protein Total Protein 6.1 L D Albumin 2.7 L Globulin 3.4 Albumin/Globulin Ratio 0.8 L Procalcitonin 0.46 Urine Color Urine Appearance Urine pH Ur Specific [place] Urine Protein Urine Glucose (UA) Urine Ketones Urine Blood Urine Nitrite Urine Bilirubin Urine Urobilinogen Ur Leukocyte Esterase Urine RBC Urine WBC Ur Epithelial Cells Urine Bacteria Hyaline Casts Anaplasma Smear A. phagocytophilum DNA Lyme Disease IgG Ab Lyme Disease IgM Ab Influenza Type A (PCR) Influenza Type B (PCR) 09/10/19 07:54 WBC RBC Hgb Hct MCV MCH MCHC RDW Std Deviation RDW Coeff of Isabella Plt Count MPV Immature Gran % (Auto) Neut % (Auto) Lymph % (Auto) [place] % (Auto) Eos % (Auto) Baso % (Auto) Immature Gran # (Auto) Neut # (Auto) Lymph # (Auto) [place] # (Auto) Eos # (Auto) Baso # (Auto) Toxic Granulation Toxic Vacuolation Dohle Bodies ESR Sodium Potassium Chloride Carbon Dioxide Anion Gap BUN Creatinine Est Cr Clr Drug Dosing Est GFR ( Amer) Est GFR (Non-Af Amer) BUN/Creatinine Ratio Glucose Lactate Calcium Total Bilirubin Direct Bilirubin AST ALT Alkaline Phosphatase Troponin I C-Reactive Protein 18.30 H Total Protein Albumin Globulin Albumin/Globulin Ratio Procalcitonin Urine Color Urine Appearance Urine pH Ur Specific [place] Urine Protein Urine Glucose (UA) Urine Ketones Urine Blood Urine Nitrite Urine Bilirubin Urine Urobilinogen Ur Leukocyte Esterase Urine RBC Urine WBC Ur Epithelial Cells Urine Bacteria Hyaline Casts Anaplasma Smear A. phagocytophilum DNA Lyme Disease IgG Ab Lyme Disease IgM Ab Influenza Type A (PCR) Influenza Type B (PCR) Medications Administered Acetaminophen (Tylenol) 1,000 mg PO Q8H [facility] Stop: 10/10/19 07:59 Last Admin: 09/10/19 08:32 Dose: 1,000 mg Documented by: [id number] Enoxaparin Sodium (Lovenox) 40 mg SQ Q24H [facility] Stop: 10/09/19 20:59 Last Admin: 09/09/19 20:44 Dose: 40 mg Documented by: [id number] Guaifenesin/Codeine Phosphate (Robitussin-Ac Sugar Free) 10 ml PO Q6H PRN PRN Reason: Cough Stop: 10/09/19 19:05 Last Admin: 09/10/19 06:46 Dose: 10 ml Documented by: [id number] Ketorolac Tromethamine (Toradol) 30 mg IV Q6H PRN PRN Reason: Moderate Pain Stop: 09/14/19 19:05 Last Admin: 09/10/19 06:48 Dose: 30 mg Documented by: [id number] Admin: 09/09/19 20:25 Dose: 30 mg Documented by: [id number] Ondansetron HCl (Zofran) 4 mg IV Q6H PRN PRN Reason: nausea or vomiting Stop: 10/09/19 19:05 Last Admin: 09/10/19 08:34 Dose: 4 mg Documented by: [id number] Admin: 09/09/19 20:44 Dose: 4 mg Documented by: [id number] Resident Activity Tracking Resident Involvement: Resident Care Provided Care Provided: Adult Hospital Medicine (1) Neutropenia Neutropenia type: unspecified Qualified Code(s): D70.9 - Neutropenia, unspecified
[2019-09-10] MEDS ORDERED: cefTRIAXone SODIUM 1,000 MG in DEXTROSE 5% 50 ML IV SCH (15:45)
--- NOTE | 2019-09-10 17:30 | Billing Data ---
Date of Service September 10, 2019 Coding Level of Care Code 62402 Subseq Hosp Care Lvl 2
[2019-09-10] MEDS ORDERED: ALUM HYDROX/MAG TRISILICATE CHEW PO PRN (19:59)
[2019-09-10] MEDS ORDERED: ALUMINUM/MAGNESIUM SUSP 30 ML UDC PO PRN (19:59)
[2019-09-10] MEDS: ENOXAPARIN INJ 40 MG/0.4 ML SYR SQ SCH (20:29)
[2019-09-11 07:44] LABS: Basophils # (auto) 0.05 K/uL (0-0.2); Basophils % (auto) 1.1 %; Eosinophils # (auto) 0.04 K/uL (0-0.5); Eosinophils % (auto) 0.9 %; Hematocrit (blood only) 37.6 % (42-52); Hemoglobin 12.6 g/dL (14.0-18.0); Immature Granulocytes # (auto) 0.16 K/uL (0.00-0.02); Immature Granulocytes % (auto) 3.4 %; Lymphocytes % (auto) 43.1 %; Mean Corpuscular Hemoglobin 28.7 pg (25-34); Mean Corpuscular Hgb Conc 33.5 g/dL (32-36); Mean Corpuscular Volume 85.6 fL (80-100); Mean Platelet Volume 10.1 fL (7.4-10.4); Monocytes # (auto) 1.25 K/uL (0.11-0.59); Monocytes % (auto) 26.9 %; Neutrophils # (auto) 1.14 K/uL (1.4-6.5); Neutrophils % (auto) 24.6 %; Platelet Count 188 K/uL (130-400); RDW Coefficient of Variation 13.2 % (11.5-14.5); RDW Standard Deviation 41.8 fL (36.4-46.3); Red Blood Count 4.39 M/uL (4.7-6.1); White Blood Count 4.64 K/uL (4.8-10.8)
[2019-09-11 08:21] LABS: Albumin Level 2.8 gm/dl (3.4-5.0); Blood Urea Nitrogen 7 mg/dl (7-18); Calcium 8.9 mg/dl (8.5-10.1); Carbon Dioxide 30 mmol/L (21-32); Chloride 108 mmol/L (98-107); Creatinine Clr Calc Pharmacy 164.4 ml/min; Est GFR (African American) > 150.0; Est GFR (Non-African American) 132.8; Glucose 82 mg/dl (70-99); Sodium 142 mmol/L (136-145)
[2019-09-11 08:24] LABS: Alanine Aminotransferase 34 U/L (12-78); Albumin Globulin Ratio 0.8 (0.9-2); Alkaline Phosphatase 66 U/L (45-117); Aspartate Aminotransferase 15 U/L (15-37); Bilirubin,Total 0.3 mg/dl (0.2-1); Globulin 3.6 gm/dl (2.5-4.0); Total Protein 6.4 gm/dl (6.4-8.2)
[2019-09-11] MEDS: ACETAMINOPHEN 500 MG TAB PO SCH (08:38)
[2019-09-11] MEDS ORDERED: FAMOTIDINE 10 MG TABLET PO SCH (09:15)
--- NOTE | 2019-09-11 13:10 | Discharge Summary ---
Date of Service September 11, 2019 Admission HPI Per Admitting Provider 19 y/o male presented to the ED from [facility] with a 3 day history of fever, headache, sore throat, N/V. He was noted to have sinus tachycardia at [facility] into the 130's. He was diagnosed with mono 1 month prior and was getting better. The present symptom constellation came on suddenly 3 days prior. Testing today at [facility] showed negative for flu and strep. The patient had dose of Toradol in the ED which improved his sore throat and headache. He has a cough which is non- productive. No chest pain, SOB or rash. Primary Care Provider: [facility] Admission Exam (Per Admitting) Constitutional General- adult male, NAD Head- atraumatic Eyes- PERRL, EOMI, anicteric ENT- oropharynx clear Neck- supple, no JVD, + anterior chain adenopathy with tenderness, no thyromegaly. Lungs- + Scattered rhonchi, otherwise CTA Heart- regular rhythm; no murmur, no gallop, no rub appreciated Abdomen- normal bowel sounds, soft, nontender. Extremities- no pretibial edema, no calf tenderness; peripheral pulses intact Neuro- alert, oriented x 3; PERRL, EOMI; paintings conservator II-XII grossly intact, non-focal. Skin- warm & dry without rash. Hospital Course (1) Febrile illness: Jaun is a 19-year-old male who with a history of primary EBV infection 1 month ago who was admitted to the hospital for febrile illness, neutropenia, and concern for pneumonia. Febrile illness, suspected viral infection Jaun presented with 3 days of fever, neutropenia, headache, and sore throat. He was given Toradol in the emergency department and admitted for supportive care. CT scan of the chest did not show any findings consistent with pneumonia, and he did not have an increased oxygen requirement during admission.He was noted to have an enlarged spleen. He received IV Rocephin and doxycycline on admission, antibiotics were discontinued following transfer to the floor. He was found to be leukopenic and neutropenic, and was placed on precautions. Lyme titer was negative, anaplasmosis titer was sent and was pending at time of discharge. He was given 2 L of crystalloid bolus and notably improved. His fever curve down trended, he was feeling greatly improved the next day, and was clinically stable for discharge. He was not discharged on any antibiotics. Given his recent mononucleosis diagnosis and splenomegaly he was counseled to avoid any contact sports or high impact/risky activities, and expressed understanding that abdominal injury could cause a splenic laceration which was likely to be very serious or fatal. He was given a short 3-day course of Zofran if needed for nausea. He will follow-up with his primary care provider [facility] for further recommendations. Napoleon Zamorano was noted to be leukopenic and neutropenic on admission. His white blood cell count was increasing, but still low on day of discharge. It was felt that this was likely due to viral suppression, although anaplasmosis titers were pending at time of discharge. Lyme antibodies were negative. He was discharged with a prescription for CBC to be completed in 1 week for follow-up. Splenomegaly Advised to avoid contact activities or sports for 8 weeks, as noted above. Likely due to acute mononucleosis. DVT prophylaxis He was maintained on enoxaparin 40 mg SQ for DVT prophylaxis. (2) Splenomegaly: (3) Neutropenia: (4) Pneumonia: Supervising Physician Co-Signing Physician Notes Resident Physician Supervision Note: I independently interviewed and examined the patient and verified the little history and physical, reviewed labs and image studies, discussed the case with the resident Dr. Alvarez and agree with the findings and care plan. o/e - General - AAOx3 heart - regular lungs CTA, b/l abdomen - soft, non tender [place] well - wbc count improved. presentation likely from viral illness d/c home. Resident Activity Tracking Resident Involvement: Resident Care Provided Care Provided: Adult Hospital Medicine
== END 2019-09-11 13:29 | disposition home or self-care (01) ==
LOC: ED 12:50 → 2W 12:50 → SUATTDRO 15:54 → 2W 17:52